=== PATIENT | male | born 1995 | race Caucasian/White ===

== ENCOUNTER 2023-08-31 05:40 | Emergency (ER) | payer BC ==
[~2023-08-31] VITALS: Ht 185.4 cm; Wt 90.9 kg
[2023-08-31 05:44] VITALS: BP 136/83; PULSE 82; TEMP 98.5; O2SAT 98
[2023-08-31] MEDS ORDERED: morphine 2 MG/ML inj. syringe IM STA (06:52)
[2023-08-31] MEDS ORDERED: ondansetron 4mg rapidly disintigrating tab PO ONE (06:55)
[2023-08-31] MEDS ORDERED: IBUP-1984 PO (07:42)
[2023-08-31 08:29] VITALS: RESP 16
--- NOTE | 2023-08-31 13:28 | NUR ---
I AGREE WITH THE ASSESSMENT PER Jacquie HITCHCOCK LVN
== END 2023-08-31 13:28 | disposition home or self-care (01) ==
LOC: ER 05:41
DX: S50.12XA Contusion of left forearm, initial encounter (principal); Z79.1 Long term (current) use of non-steroidal anti-inflammatories (NSAID); W19.XXXA Unspecified fall, initial encounter; Y93.89 Activity, other specified; Y92.89 Other specified places as the place of occurrence of the external cause; Y99.8 Other external cause status
CPT/HCPCS: 73080; 73090; 73110; 99284; A4565